=== PATIENT | male | born 1975 | race Caucasian/White ===

== ENCOUNTER 2025-05-17 09:17 | Outpatient (AMB) | payer BC, SELFPAY ==
--- OUTSIDE RECORDS SUMMARY | 2025-05-17 10:18 | XMS_ITS | Clinical Summary ---
Author Organization [facility] Address [address] [place] [address] Phone Care Team Providers Care Antique Furniture Restorer Name Role Phone Saniya Jones MD Primary Care Provide r Allergies No known active allergies Medications atorvastatin (LIPITOR) 10 MG tablet Take by mouth. 06/17/2021 Active losartan (COZAAR) 50 MG tablet Take 50 mg by mouth. 06/18/2021 Active FLUoxetine (PROZAC) 40 MG capsule Take 40 mg by mouth. 06/14/2021 Active chlorthalidone (HYGROTON) 25 MG tablet Take by mouth. 06/13/2021 Active Active Problems No known active problems Social History Tobacco Use Types Packs/Day Years Used Date Smoking Tobacco: Former Smokeless Tobacco: Never Education Answer Date Recorded Are you interested in more education? Not on ann e 01/25/2023 Are you concerned about learning? Not on file 01/25/2023 No 01/25/2023 No 01/25/2023 Digital Access Answer Date Recorded No 02/23/2023 No 02/23/2023 No 02/23/2023 Reliable internet access at home? Not on file 02/23/2023 Device with a working camera? Not on file Sex and Gender Information Value Date Recorded Sex Assigned at Not on file Legal Sex Male 4:49 PM EDT Gender Identity Not on file Sexual Orientation Not on file Last Filed Vital Signs Vital Sign Reading Time Taken Comments Blood Pressure 128/78 06/19/2022 5:16 PM EDT Pulse 77 06/19/2022 5:16 PM EDT Temperature 37.2 C (98.9 F) 06/19/2022 5:16 PM EDT Respiratory Rate 12 06/19/2022 5:16 PM EDT Oxygen Saturation 98% 06/19/2022 5:16 PM EDT Inhaled Oxygen Concentration - - Weight 136.1 kg (300 lb) 06/19/2022 5:16 PM EDT Height 182.9 cm (6') 06/19/2022 5:16 PM EDT Body Mass Index 40.69 06/19/2022 5:16 PM EDT Plan of Treatment Health Maintenance Due Date Last Done Comments Adult Td,Tdap Booster 1973 CREATININE LEVEL 1973 LIPID PANEL 1973 POTASSIUM LEVEL 1973 DEPRESSION SCREENING 1985 SMOKING Hx and SMOKELESS TOBACCO SCREENING 1986 HEPATITIS C SCREENING 1991 HIV ONE-TIME SCREENING (18-6 5 YEARS) 1991 SCREENING FOR DIABETES 2008 COLOGUARD 2018 COLONOSCOPY 2018 COLORECTAL CANCER SCREENING 2018 FIT TEST 2018 FOBT 2018 SIGMOIDOSCOPY 2018 VIRTUAL COLONOSCOPY 2018 PNEUMOCOCCAL VACCINES (50+ years) (1 of 1 - PCV) 2023 ZOSTER VACCINES (1 of 2) 2023 COVID-19 VACCINE (4 - 2023-2 5 season) 2024 09/05/2021, 01/28/2021, 01/07/2021 HEPATITIS A VACCINES Aged Out No long er eligible based on patient's age to complete this topic HIB VACCINES Aged Out No longer eligi ble based on patient's age to complete this topic MENINGOCOCCAL VACCINES (ACWY) Aged Out No longer eligible based on patient's age to complete this topic MENINGOCOCCAL VACCINES (B) Aged Out N o longer eligible based on patient's age to complete this topic Medical Devices Not on file Insurance [facility] OUT [facility] PPO BLUE [place]OSS OUT OF STATE PPO [place]UE [place] OUT OF STATE PPO [place]UE [place] OUT OF STATE PPO [place] OUT OF STATE PPO [place] OUT OF STATE PPO [place] OUT OF STATE PPO [place] OUT OF STATE PPO [place] OUT OF STATE PPO Care Teams Antique Furniture Restorer Relationship Specialty Start Date End Date Saniya Jones MD [address] [address] PCP - General Internal Medicine 06/19/22 Additional Source Comments The information contained in this document represents components of the legal health record. It is not the complete legal health record.[facility]
== END 2025-05-17 09:56 | disposition home or self-care (01) ==
LOC: HO.HMGAL 09:17
PROVIDERS: PCP Internal Medicine; Visit Provider Registered Nurse Emergency
DX: J30.89 Other allergic rhinitis (principal)
CPT/HCPCS: 95117; 95165

== ENCOUNTER 2025-06-01 14:02 | Outpatient (AMB) | payer BC, SELFPAY ==
--- OUTSIDE RECORDS SUMMARY | 2025-06-01 16:18 | XMS_ITS | Clinical Summary ---
Author Organization [facility] Address [address] [place] [phone] Phone Care Team Providers Care Barrel Coater Name Role Phone Saniya Jones MD Primary [...] topic Medical Devices Not on file Insurance [facility] OUT [facility] PPO BLUE CROSS OUT OF STATE PPO BLUE [place] OUT OF STATE PPO [place] OUT OF STATE PPO [place] OUT OF STATE PPO [place] OUT OF STATE PPO [place] OUT OF STATE PPO [place] OUT OF STATE PPO [place] OUT OF STATE PPO Care Teams Barrel Coater Relationship Specialty Start Date End Date Saniya Jones MD [address] [address] PCP - General Internal Medicine 06/19/22 Additional Source Comments The information contained in this document represents components of the legal health record. It is not the complete legal health record.[facility]
== END 2025-06-01 14:11 | disposition home or self-care (01) ==
LOC: HO.HMGAL 14:02
PROVIDERS: PCP Internal Medicine; Visit Provider Registered Nurse Emergency
DX: J30.89 Other allergic rhinitis (principal)
CPT/HCPCS: 95117; 95165

== ENCOUNTER 2025-06-13 11:06 | Outpatient (AMB) | payer BC, SELFPAY ==
--- OUTSIDE RECORDS SUMMARY | 2025-06-13 14:48 | XMS_ITS | Clinical Summary ---
Author Organization [facility] Address [address] [place] [phone] Phone Care Team Providers Care Design Eng Name Role Phone Saniya Jones MD Primary [...] 2023 ZOSTER VACCINES (1 of 2) 2023 INFLUENZA VACCINE (#1) 2025 , 07/03/2020, 07/16/2019 COVID-19 VACCINE (4 - 2024-2 6 season) 2025 09/05/2021, 01/28/2021, 01/07/2021 HEPATITIS A VACCINES Aged [...] topic Medical Devices Not on file Insurance [facility] OUT OF STATE PPO BLUE [place]OSS OUT OF STATE PPO [place] OUT OF STATE PPO BL[place] OUT OF STATE PPO [place] OUT OF STATE PPO [place] OUT OF STATE PPO [place] OUT OF STATE PPO [place] OUT OF STATE PPO [place] OUT OF STATE PPO Care Teams Design Eng Relationship Specialty Start Date End Date Saniya Jones MD [address] [address] PCP - General Internal Medicine 06/19/22 Additional Source Comments The information contained in this document represents components of the legal health record. It is not the complete legal health record.[facility]
== END 2025-06-13 11:23 | disposition home or self-care (01) ==
LOC: HO.HMGAL 11:06
PROVIDERS: PCP Internal Medicine; Visit Provider Registered Nurse Emergency
DX: J30.89 Other allergic rhinitis (principal)
CPT/HCPCS: 95117; 95165

== ENCOUNTER 2025-08-03 13:22 | Outpatient (AMB) | payer BC, SELFPAY ==
--- OUTSIDE RECORDS SUMMARY | 2025-08-03 16:14 | XMS_ITS | Clinical Summary ---
Author Organization [facility] Address [address] [place] [address] Phone Care Team Providers Care Occupational Health Rn Name Role Phone Saniya Jones MD Primary [...] HIV ONE-TIME SCREENING (18-6 5 YEARS) 1991 COLOGUARD 2018 COLONOSCOPY 2018 COLORECTAL CANCER SCREENING 2018 FIT TEST 2018 FOBT 2018 SIGMOIDOSCOPY 2018 VIRTUAL COLONOSCOPY 2018 PNEUMOCOCCAL VACCINES (50+ years) (1 of 1 - PCV) 2023 ZOSTER VACCINES (1 of 2) 2023 INFLUENZA VACCINE (#1) 2025 , 07/03/2020, 07/16/2019 COVID-19 VACCINE (4 - 2024-2 6 season) 2025 09/05/2021, 01/28/2021, 01/07/2021 RSV VACCINE (1 - 1-dose 75+ series) 2048 HEPATITIS A VACCINES Aged Out No long [...] topic Medical Devices Not on file Insurance BLUE CROSS OUT OF STATE PPO [place]UE [place] OUT OF STATE PPO [place]UE [place] OUT OF STATE PPO [place] OUT OF STATE PPO [place] OUT OF STATE PPO [place] OUT OF STATE PPO BLUE [place] OUT OF STATE PPO [facility] OUT OF STATE PPO [place] OUT OF [facility] PPO Care Teams Occupational Health Rn Relationship Specialty Start Date End Date Saniya Jones MD [address] [address] PCP - General Internal Medicine 06/19/22 Additional Source Comments The information contained in this document represents components of the legal health record. It is not the complete legal health record.[facility]
== END 2025-08-03 13:28 | disposition home or self-care (01) ==
LOC: HO.HMGAL 13:22
PROVIDERS: PCP Internal Medicine; Visit Provider Registered Nurse Emergency
DX: J30.89 Other allergic rhinitis (principal)
CPT/HCPCS: 95117; 95165

== ENCOUNTER 2025-08-15 14:05 | Outpatient (AMB) | payer BC, SELFPAY | END 2025-08-15 14:06 | disposition home or self-care (01) | LOC: HO.HMGAL 14:05 | PROVIDERS: PCP Internal Medicine; Visit Provider Registered Nurse Emergency | DX: J30.89 Other allergic rhinitis (principal) | CPT/HCPCS: 95117; 95165 ==

== ENCOUNTER 2025-08-29 10:34 | Outpatient (AMB) | payer BC, SELFPAY ==
--- OUTSIDE RECORDS SUMMARY | 2025-08-29 13:24 | XMS_ITS | Clinical Summary ---
Author Organization [facility] Address [address] [place] [phone] Phone Care Team Providers Care Director Water And Waste Services Name Role Phone Saniya Jones MD Primary [...] PPO BLUE CROSS OUT OF STATE PPO [facility] OUT OF STATE PPO [place]UE [place] OUT OF [facility] PPO Care Teams Director Water And Waste Services Relationship Specialty Start Date End Date Saniya Jones MD [address] [address] PCP - General Internal Medicine 06/19/22 Additional Source Comments The information contained in this document represents components of the legal health record. It is not the complete legal health record.[facility]
== END 2025-08-29 10:35 | disposition home or self-care (01) ==
LOC: HO.HMGAL 10:34
PROVIDERS: PCP Internal Medicine; Visit Provider Registered Nurse Emergency
DX: J30.89 Other allergic rhinitis (principal)
CPT/HCPCS: 95117; 95165

== ENCOUNTER 2025-09-12 12:49 | Outpatient (AMB) | payer BC, SELFPAY ==
--- OUTSIDE RECORDS SUMMARY | 2025-09-12 18:28 | XMS_ITS | Clinical Summary ---
Author Organization [facility] Address [address] [place] [phone] Phone Care Team Providers Care Tread Booker Name Role Phone Saniya Jones MD Primary [...] PPO BLUE CROSS OUT OF STATE PPO [facility] OUT OF STATE PPO BLUE [place] OUT OF [facility] PPO Care Teams Tread Booker Relationship Specialty Start Date End Date Saniya Jones MD [address] [address] PCP - General Internal Medicine 06/19/22 Additional Source Comments The information contained in this document represents components of the legal health record. It is not the complete legal health record.[facility]
== END 2025-09-12 12:55 | disposition home or self-care (01) ==
LOC: HO.HMGAL 12:49
PROVIDERS: PCP Internal Medicine; Visit Provider Registered Nurse Emergency
DX: J30.89 Other allergic rhinitis (principal)
CPT/HCPCS: 95117; 95165